=== PATIENT | male | born 1980 ===

== ENCOUNTER 2016-03-07 10:24 | Emergency (ER) | payer BC ==
[2016-03-07] MEDS ORDERED: Acetaminophen TAB* 325 MG PO ONE (13:59)
--- NOTE | 2016-03-07 14:18 | UC ---
Virginia Torrez SooYoung, scribed for [facility],Maxime Soto MD on 03/07/16 at 1312 . Complaint Male HPI - HPI Summary HPI Summary: NOTE: 35 y/o M with a temp and urinary tract sx. In the [facility] [place], temperature is 100.2, pulse is tachycardic at 117, BP is 147/103, pulse ox is 100. No known allergies. EMR shows no previous visits. NURSE'S NOTE: c/o having a temp of 100-102 for the past 3 days along with buring with urination, dark urine and occ. blood noticed in the urine. [ End ] IN ROOM NOTE: A 35 y/o M presents to [facility] [place] with fever onset 4 days ago, with maxT of 102. The next morning, he noticed he had dysuria. Denies back pain, n/v/d. He states having similar sx approx 4 years ago. Dx: UTI, he did not need to be hospitalized. He was seen at [facility] for it. He has no PCP currently. Pt is a software applications specialist. Pt is originally from [place], and [place]. - History of Current Complaint Chief Complaint: UCGU Stated Complaint: FEVER URINARY ISSUE Time Seen by Provider: 03/07/16 13:06 Hx Obtained From: Patient Onset/Duration: Lasting Days, Still Present Severity Initially: Moderate Severity Currently: Mild Pain Intensity: 2 Pain Scale Used: 0-10 Numeric Associated Signs And Symptoms: Positive: Fever, Hematuria, Dysuria. Negative: Back Pain, Nausea - Allergies/Home Medications Allergies/Adverse Reactions: Allergies Allergy/AdvReac Type Severity Reaction Status Date / Time No Known Allergies Allergy Verified 03/07/16 12:51 Home Medications: Home Medications NK [No Home Medications Reported] 03/07/16 [History Confirmed 03/07/16] PMH/Surg Hx/FS Hx/Imm Hx - Additional Past Medical History Additional PMH: UTI approx 4 years ago. Previously Healthy: Yes - Surgical History Surgical History: None - Family History Known Family History: Negative: Cardiac Disease - Social History Occupation: Unemployed - OTHER Alcohol Use: None Substance Use Type: None Smoking Status (MU): Never Smoked Tobacco Review of Systems Constitutional: Fever - maxT 102 Genitourinary: Dysuria, Hematuria All Other Systems Reviewed And Are Negative: Yes Physical Exam Triage Information Reviewed: Yes Appearance: Well-Appearing, No Pain Distress, Well-Nourished Vital Signs: Initial Vital Signs Temp 100.2 F 03/07/16 12:45 Pulse 117 03/07/16 12:45 Resp 14 03/07/16 12:45 BP 147/103 03/07/16 12:45 Pulse Ox 100 03/07/16 12:45 Vital Signs Reviewed: Yes Eyes: Positive: Conjunctiva Clear ENT: Positive: Hearing grossly normal, Pharynx normal, TMs normal. Negative: Muffled/hoarse voice Neck: Positive: Supple, No Lymphadenopathy Respiratory: Positive: Chest non-tender, Lungs clear, Normal breath sounds, No respiratory distress Cardiovascular: Positive: RRR, No Murmur Abdomen Description: Positive: Nontender, No Organomegaly, Soft, Other: - POSSIBLE MILD BILAT CVA TENDERNESS Bowel Sounds: Positive: Present Musculoskeletal: Positive: Strength Intact, Other: - SHANKS Neurological: Positive: Alert Psychological: Positive: Age Appropriate Behavior Skin: Negative: rashes Diagnostics - Laboratory Diagnostic Studies Completed/Ordered: UA: 50 RBCs. 500 WBCs. negative bilirubin. negative glucose. negative ketones. positive nitrites. 1.005 specific gravity Complaint Male Course/Dx - Course Course Of Treatment: MDM: A 35 y/o M with obvious UTI and mild bilateral back tenderness, reports temp up to 102 at home yesterday, and is 100.2 here, with pulse of 117 to 122. He is not hypotensive. My concern is with sepsis given his temp and tachycardia. Spoke with Dr. Kayla Cain at 1400, says to send to ED. Pt will go to ED by private car. - Differential Dx/Diagnosis Differential Diagnosis/HQI/PQRI: Urinary Tract Infection, Other - sepsis, pyelonephritis Provider Diagnoses: urosepsis. Note: This pt had a similar episode 4 years treated as an outpatient. My concern about his temp and tachycardia suggest that he would benefit from further evaluation of treatment. Pt desires to go to ED. Vital signs are stable. - Physician Notifications Discussed Patient Care With: Dr. Kayla Cain, ED Time Discussed With Above Provider: 13:57 Discharge - Discharge Plan Condition: Stable Disposition: TRANS HIGHER LVL OF CARE FAC Discharge Disposition Comment: by private car Patient Education Materials: Urinary Tract Infection in Men (ED) Additional Instructions: WE DISCUSSED, YOU NEED TO GO TO ED NOW. YOU HAVE A URINARY TRACT INFECTION, BUT IT MAY HAVE SPREAD TO YOUR BLOOD. The documentation as recorded by the Virginia galvan SooYoung accurately reflects the service I personally performed and the decisions made by me, Maxime Devi MD.
== END 2016-03-07 14:07 | disposition left against medical advice (07) ==
LOC: UCEAST 10:24
DX: N39.0 Urinary tract infection, site not specified (principal)
CPT/HCPCS: 81002; 87077; 87086; 87186

== ENCOUNTER 2016-03-07 14:31 | Emergency (ER) | payer BC ==
[2016-03-07] MEDS ORDERED: NS 0.9% 1000 ML* 1,000 ML IV ONE (14:48)
[2016-03-07 15:22] LABS: Hematocrit 45 % (42-52); Hemoglobin 15.2 g/dl (14.0-18.0); Mean Corpuscular HGB Conc 34 g/dl (31-36); Mean Corpuscular Hemoglobin 32 pg (27-31); Mean Corpuscular Volume 93 fL (80-94); Mean Platelet Volume 8 um3 (7.4-10.4); Red Blood Count 4.82 10^6/ul (4.0-5.4); Red Cell Distribution Width 12 % (10.5-15); White Blood Count 4.1 10^3/ul (3.5-10.8)
[2016-03-07] MEDS ORDERED: cefTRIAXone(*) 1 GM in NS 0.9% 50 ML* 50 ML IVPB ONE (15:23)
[2016-03-07] MEDS ORDERED: Acetaminophen TAB* 325 MG PO ONE (15:25)
[2016-03-07 15:29] LABS: Urine Bacteria 1+ (Absent); Urine Bilirubin Negative (Negative); Urine Glucose Negative (Negative); Urine Nitrite Positive (Negative)
[2016-03-07] MEDS: NS 0.9% 1000 ML* 2,000 ML IV ONE ×2 (15:42→16:21)
[2016-03-07 15:46] LABS: Albumin 4.2 g/dL (3.2-5.2); BUN/Creatinine Ratio 6.9 (8-20); EGFR African American 105.7 (>60); EGFR Non-African American 82.2 (>60); Globulin 3.6 g/dL (2-4); Magnesium 1.9 mg/dL (1.9-2.7); Potassium 3.5 mmol/L (3.5-5.0); Total Bilirubin 0.5 mg/dL (0.2-1.0); Total Protein 7.8 g/dL (6.4-8.9)
--- NOTE | 2016-03-07 17:06 | ED ---
I, Oh,Soohilene, scribed for Antonino Domingo MD on 03/07/16 at 1528 . GI/ HPI - HPI Summary HPI Summary: HPI somewhat limited due to certain level of language barrier. This 35 y/o male presents to ED from [facility] for subjective fever and burning dysuria since 3 days ago. Pt also reports mild back discomfort but denies any back pain. Pt denies any penile discharge, n/v/d, or abd pain. Pt also denies hx of kidney stone. PMHx does include UTI that was seen 4-5 years ago at [facility], but pt denies any admission. He is not sexually active. He is not circumcised. Pt does not have any PCP. He is a nonsmoker and nondrinker. - History of Current Complaint Chief Complaint: EDUrogenitalProblems Time Seen by Provider: 03/07/16 14:59 Stated Complaint: FEVER/PAINFUL URINATION Hx Obtained From: Patient Onset/Duration: Started Days Ago - 3 days ago, Atraumatic, Still Present Timing: Constant Severity: Mild Current Severity: Mild Pain Intensity: 0 Pain Characteristics: Dull, Burning Associated Signs and Symptoms: Positive: Back Pain, Fever. Negative: Vomiting, Diarrhea, Abdominal Pain Aggravating Factor(s): Urination Alleviating Factor(s): Nothing - Allergy/Home Medications Allergies/Adverse Reactions: Allergies Allergy/AdvReac Type Severity Reaction Status Date / Time No Known Allergies Allergy Verified 03/07/16 14:39 PMH/Surg Hx/FS Hx/Imm Hx Endocrine/Hematology History: Denies: Hx Diabetes Cardiovascular History: Denies: Hx Coronary Artery Disease, Hx Hypertension Infectious Disease History: No Infectious Disease History: Denies: Traveled Outside the [place] in Last 30 Days - Family History Known Family History: Negative: Cardiac Disease - Social History Occupation: Employed Full-time Alcohol Use: None Hx Substance Use: No Substance Use Type: Reports: None Hx Tobacco Use: No Smoking Status (MU): Never Smoked Tobacco Review of Systems Positive: Fever Negative: Abdominal Pain, Vomiting, Diarrhea, Nausea Positive: dysuria Positive: Other - mild back discomfort Negative: Rash Negative: Anxious, Depressed All Other Systems Reviewed And Are Negative: Yes Physical Exam - Summary Physical Exam Summary: The patient is well-nourished in no acute distress and in no acute pain. The skin is warm and dry and skin color reflects adequate perfusion. Good skin turgor. No rash HEENT: The head is normocephalic and atraumatic. The pupils are equal and reactive. The conjunctivae are clear and without drainage. Nares are patent and without drainage. Mouth reveals dry mucous membranes and the throat is without erythema and exudate. The external ears are intact. The ear canals are patent and without drainage. The tympanic membranes are intact. Neck is supple with full range of motion and non-tender. There are no carotid bruits. There is no neck vein distension. Respiratory: Chest is non-tender. Lungs are clear to auscultation and breath sounds are symmetrical and equal. Cardiovascular: Heart rate is tachycardic. There is no murmur or rub auscultated. There is no peripheral edema and pulses are symmetrical and equal. cap refill 2 seconds. Abdomen: The abdomen is soft and non-tender. There are normal bowel sounds heard in all four quadrants and there is no organomegaly palpated. Mild left CVA tenderness. Male genital exam: Penis not circumcised. No balanitis, no penile discharge. No inguinal lymphadenopathy, Musculoskeletal: There is no back pain noted. Extremities are non-tender with full range of motion. There is good capillary refill. There is no peripheral edema or calf tenderness elicited. Neurological: Patient is alert and oriented to person, place and time. The patient has symmetrical motor strength in all four extremities. Cranial nerves are grossly intact. Deep tendon reflexes are symmetrical and equal in all four extremities. Psychiatric: The patient has an appropriate affect and does not exhibit any anxiety or depression. Triage Information Reviewed: Yes Vital Signs On Initial Exam: Initial Vitals Temp Pulse Resp BP Pulse Ox 98.5 F 121 16 155/100 98 03/07/16 14:36 03/07/16 14:36 03/07/16 14:36 03/07/16 14:36 03/07/16 14:36 Vital Signs Reviewed: Yes Diagnostics - Vital Signs Vital Signs Temp Pulse Resp BP Pulse Ox 03/07/16 14:36 98.5 F 121 16 155/100 98 - Laboratory Lab Results: Lab Results 03/07/16 03/07/16 03/07/16 Range/Units 15:09 15:09 15:09 WBC 4.1 (3.5-10.8) 10^3/ul RBC 4.82 (4.0-5.4) 10^6/ul Hgb 15.2 (14.0-18.0) g/dl Hct 45 (42-52) % MCV 93 (80-94) fL MCH 32 H (27-31) pg MCHC 34 (31-36) g/dl RDW 12 (10.5-15) % Plt Count 197 (150-450) 10^3/ul MPV 8 (7.4-10.4) um3 Neut % (Auto) 72.3 (38-83) % Lymph % (Auto) 14.4 L (25-47) % [place] % (Auto) 12.7 H (1-9) % Eos % (Auto) 0.1 (0-6) % Baso % (Auto) 0.5 (0-2) % Absolute Neuts (auto) 3.0 (1.5-7.7) 10^3/ul Absolute Lymphs (auto) 0.6 L (1.0-4.8) 10^3/ul Absolute Monos (auto) 0.5 (0-0.8) 10^3/ul Absolute Eos (auto) 0 (0-0.6) 10^3/ul Absolute Basos (auto) 0 (0-0.2) 10^3/ul Absolute Nucleated RBC 0 10^3/ul Nucleated RBC % 0.1 Sodium 133 (133-145) mmol/L Potassium 3.5 (3.5-5.0) mmol/L Chloride 98 L (101-111) mmol/L Carbon Dioxide 28 (22-32) mmol/L Anion Gap 7 (2-11) mmol/L BUN 7 (6-24) mg/dL Creatinine 1.02 (0.67-1.17) mg/dL Est GFR ( Amer) 105.7 (>60) Est GFR (Non-Af Amer) 82.2 (>60) BUN/Creatinine Ratio 6.9 L (8-20) Glucose 130 H (70-100) mg/dL Lactic Acid 1.6 (0.5-2.0) mmol/L Calcium 9.0 (8.6-10.3) mg/dL Magnesium 1.9 (1.9-2.7) mg/dL Total Bilirubin 0.50 (0.2-1.0) mg/dL AST 63 H (13-39) U/L ALT 64 H (7-52) U/L Alkaline Phosphatase 66 (34-104) U/L Total Protein 7.8 (6.4-8.9) g/dL Albumin 4.2 (3.2-5.2) g/dL Globulin 3.6 (2-4) g/dL Albumin/Globulin Ratio 1.2 (1-3) Urine Color Urine Appearance Urine pH (5-9) Ur Specific [place] (1.010-1.030) Urine Protein (Negative) Urine Ketones (Negative) Urine Blood (Negative) Urine Nitrate (Negative) Urine Bilirubin (Negative) Urine Urobilinogen (Negative) Ur Leukocyte Esterase (Negative) Urine WBC (Auto) (Absent) Urine RBC (Auto) (Absent) Ur Transition Epith Cell (Absent) Urine Bacteria (Absent) Urine Glucose (Negative) Urine Ascorbic Acid (Negative) 03/07/16 Range/Units 15:09 WBC (3.5-10.8) 10^3/ul RBC (4.0-5.4) 10^6/ul Hgb (14.0-18.0) g/dl Hct (42-52) % MCV (80-94) fL MCH (27-31) pg MCHC (31-36) g/dl RDW (10.5-15) % Plt Count (150-450) 10^3/ul MPV (7.4-10.4) um3 Neut % (Auto) (38-83) % Lymph % (Auto) (25-47) % [place] % (Auto) (1-9) % Eos % (Auto) (0-6) % Baso % (Auto) (0-2) % Absolute Neuts (auto) (1.5-7.7) 10^3/ul Absolute Lymphs (auto) (1.0-4.8) 10^3/ul Absolute Monos (auto) (0-0.8) 10^3/ul Absolute Eos (auto) (0-0.6) 10^3/ul Absolute Basos (auto) (0-0.2) 10^3/ul Absolute Nucleated RBC 10^3/ul Nucleated RBC % Sodium (133-145) mmol/L Potassium (3.5-5.0) mmol/L Chloride (101-111) mmol/L Carbon Dioxide (22-32) mmol/L Anion Gap (2-11) mmol/L BUN (6-24) mg/dL Creatinine (0.67-1.17) mg/dL Est GFR ( Amer) (>60) Est GFR (Non-Af Amer) (>60) BUN/Creatinine Ratio (8-20) Glucose (70-100) mg/dL Lactic Acid (0.5-2.0) mmol/L Calcium (8.6-10.3) mg/dL Magnesium (1.9-2.7) mg/dL Total Bilirubin (0.2-1.0) mg/dL AST (13-39) U/L ALT (7-52) U/L Alkaline Phosphatase (34-104) U/L Total Protein (6.4-8.9) g/dL Albumin (3.2-5.2) g/dL Globulin (2-4) g/dL Albumin/Globulin Ratio (1-3) Urine Color Yellow Urine Appearance Cloudy Urine pH 6.0 (5-9) Ur Specific [place] 1.017 (1.010-1.030) Urine Protein 1+(30 mg/dl) H (Negative) Urine Ketones Negative (Negative) Urine Blood 1+ H (Negative) Urine Nitrate Positive H (Negative) Urine Bilirubin Negative (Negative) Urine Urobilinogen Negative (Negative) Ur Leukocyte Esterase 3+ H (Negative) Urine WBC (Auto) 3+(>20/hpf) H (Absent) Urine RBC (Auto) 3+(>10/hpf) H (Absent) Ur Transition Epith Cell Present H (Absent) Urine Bacteria 1+ H (Absent) Urine Glucose Negative (Negative) Urine Ascorbic Acid * H (Negative) Result Diagrams: 03/07/16 15:09 03/07/16 15:09 Lab Statement: Any lab studies that have been ordered have been reviewed, and results considered in the medical decision making process. Re-Evaluation - Re-Evaluation First Eval Re-Evaluation Time: 16:50 Change: Improved Comment: ERP in room to update pt on blood work and UA results. Plan of care is discussed. Pt is agreeable to outpatient follow up. GIGU Course/Dx - Course Assessment/Plan: Transfered from Urgent Care. Pt was concerned about urosepsis due to fever and tachycardia. He is alsoed concerned with dysuria concern and possible STD. Pt is not circumcised but denies any sexual encounters. No ballantitis. no left shift, no penile discharge noted upon examination. Pt will be treated for UTI and discharged with cipro. - Diagnoses Differential Diagnoses - Male: Pyelonephritis, Renal Colic, STD, Other - uti Provider Diagnoses: UTI (urinary tract infection) Discharge - Discharge Plan Condition: Stable Disposition: HOME Prescriptions: Ciprofloxacin TAB* [Cipro Tab*] 500 mg PO BID #20 tab Patient Education Materials: Urinary Tract Infection in Men (ED), Ciprofloxacin (By mouth), Acetaminophen/Codeine (By mouth) Referrals: [facility] [place] [facility] REFERRAL [Outside] - 2 Days The documentation as recorded by the Arnel galvan Soohyun accurately reflects the service I personally performed and the decisions made by me, Antonino Domingo MD.
== END 2016-03-07 17:07 | disposition home or self-care (01) ==
LOC: ED 14:31
DX: N39.0 Urinary tract infection, site not specified (principal)
CPT/HCPCS: 36415; 80053; 81002; 81003; 81015; 83605; 83735; 85025; 87040; 87077; 87086; 87186; 96361; 96374; 99283; A9270-GY; J0696